=== PATIENT | female | born 2000 | race Caucasian/White ===

== ENCOUNTER 2020-08-11 14:16 | Emergency (ER) | payer OTHER ==
[~2020-08-11] VITALS: Ht 160 cm; Wt 63.5 kg
[2020-08-11] MEDS ORDERED: INHALER (14:26)
[2020-08-11 14:55] LABS: URINE BILIRUBIN NEGATIVE (Negative); URINE BLOOD NEGATIVE (Negative); URINE CLARITY CLEAR; URINE COLOR YELLOW; URINE GLUCOSE-RANDOM NEGATIVE (Negative); URINE KETONES 1+ (Negative); URINE LEUKOCYTES-REFLEX NEGATIVE (Negative); URINE NITRITE-REFLEX NEGATIVE (Negative); URINE PROTEIN NEGATIVE (Negative); URINE SPECIFIC GRAVITY >= 1.030 (1.005-1.030); URINE UROBILINOGEN 0.2 E.U./dl (0.2-1.0)
[2020-08-11 15:02] LABS: ABSOLUTE BASOPHILS 0.1 thou/uL (0.0-0.2); ABSOLUTE EOSINOPHILS 0.1 thou/uL (0.0-0.7); ABSOLUTE LYMPHOCYTES 2.1 thou/uL (0.8-5.3); ABSOLUTE MONOCYTES 0.5 thou/uL (0.0-1.2); ABSOLUTE NEUTROPHILS 6.8 thou/uL (1.6-8.1); BASOPHILS 0.6 %; EOSINOPHILS 0.6 %; HEMATOCRIT 41.7 % (37.0-47.0); HEMOGLOBIN 14.2 gm/dL (12.0-15.0); LYMPHOCYTES 21.7 %; MCH 31.1 pg (26.0-34.0); MCHC 33.9 g/dL (28.0-37.0); MCV 91.8 fL (80.0-100.0); MONOCYTES 5.1 %; MPV 9.8 fl. (7.2-11.1); NUCLEATED RBCS 0 /100WBC; PLATELET COUNT* 199 thou/uL (150-400); RBC 4.55 mil/uL (4.20-5.00); RDW-CV 12.5 % (10.5-14.5); WBC 9.5 thou/uL (4.0-11.0)
[2020-08-11 15:14] LABS: CALCIUM 8.7 mg/dL (8.5-10.1); CREATININE 0.9 mg/dL (0.6-1.3); POTASSIUM 3.4 mmol/L (3.5-5.1)
[2020-08-11 15:18] LABS: ALBUMIN 4.1 g/dL (3.4-5.0); TOTAL BILIRUBIN 0.4 mg/dL (<0.1-1.0)
[2020-08-11 16:07] LABS: ESR (SEDRATE) 6 mm/hr (0-20)
[2020-08-11] MEDS ORDERED: BUTALB-APAP-CA1 EACH PO (16:37)
[2020-08-11 16:58] VITALS: BP 124/71
--- NOTE | 2020-08-12 10:04 | EKG ---
[place] [address] ELECTROCARDIOGRAM REPORT Name: FROYLAN COHEN Room: [facility]#: [id number] Admission: 08/11/20 Attend Phys: Discharge: 08/11/20 Date of : 89 Date of Service: 08/11/20 1448 Report #: [id number] THIS REPORT FOR: //name// [facility] ED Test Date: 2020-08-11 Test Time: 14:48:42 Pat Name: FROYLAN COHEN Department: Room: Gender: [employer] Farm[employer]: [place] : 2000 Requested By: Jasmine Vee Order Number: [id number] MD: Jaylon Saez Measurements Intervals [place] Rate: 102 P: 60 IN: 129 QRS: 44 QRSD: 83 T: 2 QT: 332 QTc: 433 Interpretive Statements Sinus tachycardia Borderline T abnormalities, anterior leads Baseline wander in lead(s) I,II No previous ECG available for comparison Electronically Signed On 08-12-2020 10:04:06 [employer]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
== END 2020-08-11 16:58 | disposition home or self-care (01) ==
LOC: M.ERS 14:16
PROVIDERS: Nurse Practitioner Family
DX: N83.201 Unspecified ovarian cyst, right side (principal); M25.562 Pain in left knee; R60.0 Localized edema; R51.9 Headache, unspecified; J45.909 Unspecified asthma, uncomplicated